=== PATIENT | female | born 1995 | race Caucasian/White ===

== ENCOUNTER 2017-01-09 12:06 | Emergency (ER) | payer OTHER ==
--- NOTE | 2017-01-09 12:34 | RADIOLOGY REPORT ---
HISTORY: Chest pain. Shortness of breath. Cough. COMPARISON: None. TECHNIQUE: Chest PA and lateral. FINDINGS: The lungs are clear. Cardiac silhouette is normal in size. Pulmonary vasculature is within normal limits. There are no pleural effusions. IMPRESSION: No acute cardiopulmonary disease. Final Electronic Signature: This report was electronically signed by Griffin Kaplan MD, FACR on 12:32 PM. nick /
--- NOTE | 2017-01-09 12:52 | ER NURSING DOCUMENTATION ---
Nurse's Notes [facility] Name:Radha Daivs Age:21 yrs Sex:Female :1995 Arrival Date:01/09/2017 Time:12:06 Bed1 Private MD: Diagnosis:Cough;Musculoskeletal Chest Pain Presentation: 01/09 12:11 Acuity: LOREE 3 sj 12:12 Presenting complaint: Patient states: shes has had a cough since December 28. states she bw2 was given steroids. pt states she still has cough and rib pain. Transition of care: patient was not received from another setting of care. 12:12 Method Of Arrival: Walk In 2 Triage Assessment: 12:13 General: Appears in no apparent distress, Behavior is appropriate for age, cooperative. bw2 Pain: Complains of pain in right chest wall. Historical: - Allergies: No known drug Allergies; - Tetanus: < 10 years. - Ebola Screening: : Patient negative for fever greater than or equal to 101.5 degrees Fahrenheit, and additional compatible Ebola Virus Disease symptoms. Patient denies exposure to infectious person. Patient denies travel to an Ebola-affected area in the 21 days before illness onset. No symptoms or risks identified at this time. . - Immunization history: Flu Vaccine None. - Social history: Smoking status: Patient states was never smoker of tobacco. Screenin:14 Infectious Disease Risk None. Abuse screen: Denies threats or abuse. Nutritional bw2 screening: No deficits noted. Assessment: 12:14 See Triage Assessment done by same RN. bw2 12:50 Respiratory: Breath sounds are clear bilaterally. bw2 Vital Signs: 12:11 BP 137 / 88; Pulse 98; Resp 20; Temp 98.8(O); Pulse Ox 96% on R/A; Weight 58 kg; Height arc 5 ft. 4 in. (163 cm) (R); Pain 7/10; 12:11 Body Mass Index 21.83 (58.00 kg, 163 cm) arc ED Course: 12:10 Patient arrived in ED. dp 12:10 Chiquis Alarcon is Primary Nurse. sj 12:11 Triage completed. sj 12:14 Valuables Remains with patient Patient has correct armband on for positive bw2 identification. 12:16 Felix Biggs MD is Attending Physician. tl1 12:20 Patient moved to radiology. pm1 12:39 Josefa Starkey MD is Referral Physician. tl1 Administered Medications: No medications were administered Outcome: 12:40 Discharge ordered by . tl1 12:50 Discharged to home ambulatory, with significant other. bw2 12:50 Condition: good 12:50 Discharge Assessment: Patient awake, alert and oriented x 3. No cognitive and/or functional deficits noted. Patient verbalized understanding of disposition instructions. 12:50 Discharge instructions given to patient, Instructed on discharge instructions, follow up and referral plans. medication usage, Demonstrated understanding of instructions, medications, Prescriptions given X 2. 12:51 Patient left the ED. 2 01/10 11:43 Discharge F/U Call: Unable to reach: non-working number lc Signatures: Maryse Vinson, RN RN Ira Nix pm1 Felix Biggs MD MD tl1 Joan Piedra, Chiquis Murdock Beth bw2 Rupa Olson
--- NOTE | 2017-01-09 12:52 | ER PHYSICIAN DOCUMENTATION ---
Physician Documentation [facility] Name:Radha Davis Age:21 yrs Sex:Female :1995 Arrival Date:01/09/2017 Time:12:06 Bed1 Private MD: Felix Michaud Disposition: 01/09/17 12:40 Discharged to Home/Self Care. Impression: Cough, Musculoskeletal Chest Pain. - Condition is Good. - Discharge Instructions: BRONCHITIS, No Abx (Adult), CHEST WALL STRAIN. - Prescriptions for Tessalon Perles 100 mg Oral Capsule - take 1 capsule by ORAL route every 8 hours As needed; 15 capsule. Tussionex Pennkinetic ER 8- 10 mg/5 mL Oral Suspension, Sust. Release 12 hr - take 5 milliliter by ORAL route every 12 hours As needed; 120 milliliter. - Medical Reconciliation form form. - Follow up: Josefa Starkey MD; When: 4- 6 days; Reason: Recheck today's complaints. - Problem is new. - Symptoms have improved. HPI: 01/09 12:16 This 21 yrs old Female presents to ER via Walk In with complaints of Painful tl1 Cough. Historical: - Allergies: No known drug Allergies; - Tetanus: < 10 years. - Ebola Screening: : Patient negative for fever greater than or equal to 101.5 degrees Fahrenheit, and additional compatible Ebola Virus Disease symptoms. Patient denies exposure to infectious person. Patient denies travel to an Ebola-affected area in the 21 days before illness onset. No symptoms or risks identified at this time. . - Immunization history: Flu Vaccine None. - Social history: Smoking status: Patient states was never smoker of tobacco. Vital Signs: 12:11 BP 137 / 88; Pulse 98; Resp 20; Temp 98.8(O); Pulse Ox 96% on R/A; Weight 58 kg; Height arc 5 ft. 4 in. (163 cm) (R); Pain 7/10; 12:11 Body Mass Index 21.83 (58.00 kg, 163 cm) arc MDM: 12:16 Patient medically screened. tl1 01/09 12:36 Order name: [id number]; Complete Time: 06:36 EDMS 01/10 06:34 Interpretation: NAD. SEE RADIOLOGIST REPORT. tl1 Dispensed Medications: No medications were administered Signatures: Felix Biggs MD MD tl1 Roger, Silvia bw2
== END 2017-01-09 12:52 | disposition home or self-care (01) ==
LOC: ER 12:06
DX: R05 Cough (principal); R07.81 Pleurodynia
CPT/HCPCS: 71020; 99283